=== PATIENT | male | born 1950 | race Caucasian/White ===

== ENCOUNTER 2016-07-20 09:56 | Emergency (ER) | payer MEDICARE, OTHER ==
[2016-07-20] MEDS ORDERED: Cephalexin CAP* 500 MG PO ONE (11:05)
[2016-07-20] MEDS ORDERED: Ibuprofen TAB* 400 MG PO ONE (11:05)
--- NOTE | 2016-07-20 11:25 | ED ---
Upper Extremity Pain - HPI Summary HPI Summary: Patient presents with right hand pain, redness and swelling that began approximately a week ago, but became worse yesterday. He can not form a full fist, but he is able to move all digits and the wrist, but are becoming more uncomfortable. He denies known trauma or bite, does not have a fever or feel ill otherwise. - History of Current Complaint Chief Complaint: EDExtremityUpper Stated Complaint: RT HAND SWELLING Time Seen by Provider: 07/20/16 10:14 Hx Obtained From: Patient Mechanism Of Injury: Unknown Onset/Duration: Started Days Ago, Atraumatic, Worse Since - yesterday Timing: Constant Severity Initially: Mild Severity Currently: Moderate Pain Location: Hand - right Character: Dull, Stiffness Aggravating Factor(s): Movement Alleviating Factor(s): Elevation, OTC Meds Associated Signs & Symptoms: Positive: Swelling, Redness Related History: Dominant Hand Right - Allergies/Home Medications Allergies/Adverse Reactions: Allergies Allergy/AdvReac Type Severity Reaction Status Date / Time No Known Allergies Allergy Verified 07/20/15 12:48 PMH/Surg Hx/FS Hx/Imm Hx Cardiovascular History: Reports: Hx Hypertension Musculoskeletal History: Reports: Other Musculoskeletal History - morbid obesity Infectious Disease History: No Infectious Disease History: Denies: Traveled Outside the [place] in Last 30 Days - Family History Known Family History: Positive: Cardiac Disease, Hypertension - Social History Occupation: Unemployed Lives: With Family Alcohol Use: Occasionally Substance Use Type: Reports: Prescribed Smoking Status (MU): Never Smoked Tobacco Review of Systems Negative: Fever, Chills Positive: Decreased ROM, Edema - erythema dorsum of right hand. Negative: Myalgia Negative: Bruising Negative: Weakness, Paresthesia, Numbness All Other Systems Reviewed And Are Negative: Yes Physical Exam Triage Information Reviewed: Yes Vital Signs On Initial Exam: Initial Vitals Temp Pulse Resp BP Pulse Ox 98.1 F 93 20 108/77 95 07/20/16 10:13 07/20/16 10:13 07/20/16 10:13 07/20/16 10:13 07/20/16 10:13 Vital Signs Reviewed: Yes Appearance: Positive: Well-Appearing, Pain Distress, Obese Skin: Positive: Warm, Skin Color Reflects Adequate Perfusion, Dry, Tender, Soft , Erythema @ - dorsum of right hand to the wrist Head/Face: Positive: Normal Head/Face Inspection Eyes: Positive: EOMI, YESSICA, Conjunctiva Clear ENT: Positive: Hearing grossly normal Respiratory/Lung Sounds: Positive: Breath Sounds Present Cardiovascular: Positive: RRR Musculoskeletal: Positive: Limited @ - pain with movement of the digits and with flex/ext of the right wrist, Pain @ - TTP globally over right hand and wrist to the mid forearm, Edema Right - hand Neurological: Positive: Sensory/Motor Intact, Alert, Oriented to Person Place, Time, NV Bundle Intact Distally Psychiatric: Positive: Affect/Mood Appropriate AVPU Assessment: Alert Diagnostics - Vital Signs Vital Signs Temp Pulse Resp BP Pulse Ox 07/20/16 10:13 98.1 F 93 20 108/77 95 - Laboratory Result Diagrams: 07/20/16 11:42 07/20/16 11:42 Lab Statement: Any lab studies that have been ordered have been reviewed, and results considered in the medical decision making process. Course/Dx - Course Course Of Treatment: Patient take diuretics and is followed by Dr. Santiago. He has not taken his daily potassium for the last two days since he hasn't picked up his refill prescription. He will be given a dose today and is encouraged to resume his daily potassium. - Diagnoses Differential Diagnosis/HQI/PQRI: Positive: Arthritis, Bursitis, Contusion, Hematoma, Septic Arthritis, Strain, Sprain Provider Diagnoses: Cellulitis, Hypokalemia Discharge - Discharge Plan Condition: Stable Disposition: HOME Prescriptions: Cephalexin CAP* [Keflex CAP*] 500 mg PO QID #39 cap Patient Education Materials: Cellulitis (ED), Hypokalemia (ED) Referrals: Estrada Santiago MD [Primary Care Provider] - Additional Instructions: Please resume your potassium regimen, and begin taking your antibiotics. Take the antibiotic until they are completely gone. Elevate your hand above your heart and take ibuprofen consistently for the next 3-5 days to decrease swelling and pain. You can take 600mg three times daily with meals. Follow-up with your PCP in 2-3 days for evaluation to ensure you are improving. Return to the emergency department if your symptoms worsen.
[2016-07-20 11:51] LABS: Hematocrit 56 % (42-52); Hemoglobin 18.2 g/dl (14.0-18.0); Mean Corpuscular HGB Conc 32 g/dl (31-36); Mean Corpuscular Hemoglobin 32 pg (27-31); Mean Corpuscular Volume 97 fL (80-94); Mean Platelet Volume 9 um3 (7.4-10.4); Red Cell Distribution Width 18 % (10.5-15); White Blood Count 11.5 10^3/ul (3.5-10.8)
[2016-07-20 12:07] LABS: Albumin 3.6 g/dL (3.2-5.2); BUN/Creatinine Ratio 26.9 (8-20); C Reactive Protein 62.85 mg/L (< 5.00); Calcium 9.8 mg/dL (8.6-10.3); EGFR African American 68.8 (>60); EGFR Non-African American 53.5 (>60); Globulin 4.3 g/dL (2-4); Potassium 2.8 mmol/L (3.5-5.0); Total Bilirubin 1.3 mg/dL (0.2-1.0); Total Protein 7.9 g/dL (6.4-8.9)
[2016-07-20] MEDS ORDERED: Potassium Chlor TAB* 20 MEQ TAB.ER PO ONE ×2 (12:20→12:22)
[2016-07-20 12:57] VITALS: BP 119/77
== END 2016-07-20 12:57 | disposition home or self-care (01) ==
LOC: ED 09:56
DX: L03.113 Cellulitis of right upper limb (principal); E87.6 Hypokalemia; I10 Essential (primary) hypertension; E66.01 Morbid (severe) obesity due to excess calories; Z68.43 Body mass index [BMI] 50.0-59.9, adult
CPT/HCPCS: 36415; 80053; 85025; 86140; 99283; A9270-GY

== ENCOUNTER 2016-07-24 09:55 | Emergency (ER) | payer MEDICARE, OTHER ==
[2016-07-24] MEDS ORDERED: Ketorolac INJ* 30 MG/ML 1 ML VIAL IV ONE (12:23)
[2016-07-24] MEDS ORDERED: HYDROmorphone INJ* 1 MG/ML CARPUJECT SYRINGE IV ONE (12:23)
[2016-07-24 12:47] LABS: Hematocrit 54 % (42-52); Hemoglobin 17.6 g/dl (14.0-18.0); Mean Corpuscular HGB Conc 32 g/dl (31-36); Mean Corpuscular Hemoglobin 32 pg (27-31); Mean Corpuscular Volume 98 fL (80-94); Mean Platelet Volume 9 um3 (7.4-10.4); Red Blood Count 5.56 10^6/ul (4.0-5.4); Red Cell Distribution Width 18 % (10.5-15); White Blood Count 11.2 10^3/ul (3.5-10.8)
[2016-07-24 12:59] LABS: Albumin 3.7 g/dL (3.2-5.2); BUN/Creatinine Ratio 26.6 (8-20); C Reactive Protein 36.76 mg/L (< 5.00); Calcium 9.9 mg/dL (8.6-10.3); EGFR African American 72.5 (>60); EGFR Non-African American 56.4 (>60); Globulin 4.3 g/dL (2-4); Total Bilirubin 1.2 mg/dL (0.2-1.0); Uric Acid 10.7 mg/dL (4.4-7.6)
--- NOTE | 2016-07-24 13:00 | RAD ---
HISTORY: Pain and swelling of right wrist COMPARISONS: None VIEWS: 3, Frontal, lateral, and oblique views of the right wrist FINDINGS: BONE DENSITY: Normal. BONES: There is no displaced fracture. JOINTS: There is no arthropathy. ALIGNMENT: There is no dislocation. SOFT TISSUES: There is circumferential soft tissue swelling. OTHER FINDINGS: None. IMPRESSION: SOFT TISSUE SWELLING. NO ACUTE OSSEOUS INJURY. IF SYMPTOMS PERSIST, RECOMMEND REPEAT IMAGING.
--- NOTE | 2016-07-24 13:00 | RAD ---
HISTORY: Pain and swelling of right hand COMPARISONS: None VIEWS: 3, Frontal, lateral, and oblique views of the right hand FINDINGS: BONE DENSITY: Normal. BONES: There is no displaced fracture. JOINTS: There is no arthropathy. ALIGNMENT: There is no dislocation. SOFT TISSUES: There is soft tissue swelling predominantly along the ulnar aspect of the right hand, and of the wrist OTHER FINDINGS: None. IMPRESSION: SOFT TISSUE SWELLING. NO ACUTE OSSEOUS INJURY. IF SYMPTOMS PERSIST, RECOMMEND REPEAT IMAGING. Soft tissue swelling
[2016-07-24] MEDS ORDERED: Ondansetron INJ* 2 MG/ML VIAL IV ONE (13:14)
[2016-07-24] MEDS ORDERED: Ondansetron INJ* 2 MG/ML VIAL ONE (13:16)
[2016-07-24 13:37] LABS: Erythrocyte Sed Rate 35 mm/Hr (0-40)
[2016-07-24 15:41] VITALS: BP 106/76
--- NOTE | 2016-07-24 17:03 | ED ---
Bozena Trujillo Matthew, scribed for Minor Jiménez MD on 07/24/16 at 1214 . Upper Extremity Pain - HPI Summary HPI Summary: A 66 y/o male presents to the ED with gradually worsening right wrist pain since 4 days ago. The pain is rated 10/10 in severity and described as shooting. The pain initially started in the knuckle of the 2nd finger one week ago, and moved into the fingers, which prevented him from bending his finger. The pain is now in the wrist and he's able to move his fingers again. He was started on Abx 4 days ago without improvement. 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 No Hx of gout. - History of Current Complaint Chief Complaint: EDExtremityUpper Stated Complaint: RT HAND SWELLING/PAIN IN WRIST Time Seen by Provider: 07/24/16 11:51 Hx Obtained From: Patient Mechanism Of Injury: Unknown Onset/Duration: Started Days Ago, Atraumatic, Still Present Timing: Constant Severity Initially: Moderate Severity Currently: Moderate Pain Location: Wrist - RT Aggravating Factor(s): Extension, Twisting Alleviating Factor(s): Nothing Associated Signs & Symptoms: Positive: Swelling, Other - Warmth. Negative: Fever - Allergies/Home Medications Allergies/Adverse Reactions: Allergies Allergy/AdvReac Type Severity Reaction Status Date / Time No Known Allergies Allergy Verified 07/24/16 09:58 PMH/Surg Hx/FS Hx/Imm Hx Cardiovascular History: Reports: Hx Hypertension Musculoskeletal History: Reports: Other Musculoskeletal History - morbid obesity Infectious Disease History: No Infectious Disease History: Denies: Traveled Outside the [place] in Last 30 Days - Family History Known Family History: Positive: Cardiac Disease, Hypertension - Social History Alcohol Use: Occasionally Substance Use Type: Reports: Prescribed Smoking Status (MU): Never Smoked Tobacco Review of Systems Constitutional: Negative Negative: Fever, Chills Eyes: Negative ENT: Negative Cardiovascular: Negative Respiratory: Negative Gastrointestinal: Negative Genitourinary: Negative Positive: Myalgia - RT wrist pain w/ warmth, Edema - RT wrist Skin: Negative Positive: Headache Psychological: Normal All Other Systems Reviewed And Are Negative: Yes Physical Exam - Summary Physical Exam Summary: The patient is morbidly obese. The skin is warm and dry and skin color reflects adequate perfusion. HEENT: The head is normocephalic and atraumatic. The pupils are equal and reactive. The conjunctivae are clear and without drainage. Mouth reveals moist mucous membranes and the throat is without erythema and exudate. The external ears are intact. Neck is supple with full range of motion and non-tender. There are no carotid bruits. There is no neck vein distension. Respiratory: Chest is non-tender. Lungs are clear to auscultation and breath sounds are symmetrical and equal. Cardiovascular: Hear is regular rate and rhythm. There is no murmur or rub auscultated. There is no peripheral edema and pulses are symmetrical and equal. Abdomen: The abdomen is soft and non-tender. There are normal bowel sounds heard in all four quadrants and there is no organomegaly palpated. Musculoskeletal: There is no back pain noted. There is good capillary refill. There is no peripheral edema or calf tenderness elicited. RUE shows no elbow or shoulder tenderness, no lymphangitis, or no epitrochlear nodes noted. There is swelling of the dorsum of the hand and wrist. No erythema appreciated, Full ROM ; however, there is pain with extension, lateral and ulnar deviation of the wrist, and he's unable to pronate and supinate w/o pain. He has no pain with flexion. Neurological: Patient is alert and oriented to person, place and time. The patient has symmetrical motor strength in all four extremities. Cranial nerves are grossly intact. Deep tendon reflexes are symmetrical and equal in all four extremities. Psychiatric: The patient has an appropriate affect and does not exhibit any anxiety or depression. Triage Information Reviewed: Yes Vital Signs On Initial Exam: Initial Vitals Temp Pulse Resp BP Pulse Ox 96.2 F 99 22 154/89 91 07/24/16 09:58 07/24/16 09:58 07/24/16 09:58 07/24/16 09:58 07/24/16 09:58 Vital Signs Reviewed: Yes Diagnostics - Vital Signs Vital Signs Temp Pulse Resp BP Pulse Ox 07/24/16 09:58 96.2 F 99 22 154/89 91 - Laboratory Lab Results: Lab Results 07/24/16 07/24/16 07/24/16 Range/Units 12:30 12:30 12:30 WBC 11.2 H (3.5-10.8) 10^3/ul RBC 5.56 H (4.0-5.4) 10^6/ul Hgb 17.6 (14.0-18.0) g/dl Hct 54 H (42-52) % MCV 98 H (80-94) fL MCH 32 H (27-31) pg MCHC 32 (31-36) g/dl RDW 18 H (10.5-15) % Plt Count 176 (150-450) 10^3/ul MPV 9 (7.4-10.4) um3 Neut % (Auto) 77.8 (38-83) % Lymph % (Auto) 13.0 L (25-47) % Polk % (Auto) 6.6 (1-9) % Eos % (Auto) 1.3 (0-6) % Baso % (Auto) 1.3 (0-2) % Absolute Neuts (auto) 8.7 H (1.5-7.7) 10^3/ul Absolute Lymphs (auto) 1.5 (1.0-4.8) 10^3/ul Absolute Monos (auto) 0.7 (0-0.8) 10^3/ul Absolute Eos (auto) 0.1 (0-0.6) 10^3/ul Absolute Basos (auto) 0.1 (0-0.2) 10^3/ul Absolute Nucleated RBC 0.02 10^3/ul Nucleated RBC % 0.1 ESR 35 (0-40) mm/Hr Sodium 138 (133-145) mmol/L Potassium 5.0 (3.5-5.0) mmol/L Chloride 103 (101-111) mmol/L Carbon Dioxide 28 (22-32) mmol/L Anion Gap 7 (2-11) mmol/L BUN 34 H (6-24) mg/dL Creatinine 1.28 H (0.67-1.17) mg/dL Est GFR ( Amer) 72.5 (>60) Est GFR (Non-Af Amer) 56.4 (>60) BUN/Creatinine Ratio 26.6 H (8-20) Glucose 89 (70-100) mg/dL Lactic Acid 1.8 (0.5-2.0) mmol/L Uric Acid 10.7 H (4.4-7.6) mg/dL Calcium 9.9 (8.6-10.3) mg/dL Total Bilirubin 1.20 H (0.2-1.0) mg/dL AST 26 (13-39) U/L ALT 13 (7-52) U/L Alkaline Phosphatase 87 (34-104) U/L C-Reactive Protein 36.76 H (< 5.00) mg/L Total Protein 8.0 (6.4-8.9) g/dL Albumin 3.7 (3.2-5.2) g/dL Globulin 4.3 H (2-4) g/dL Albumin/Globulin Ratio 0.9 L (1-3) Result Diagrams: 07/24/16 12:30 07/24/16 12:30 Lab Statement: Any lab studies that have been ordered have been reviewed, and results considered in the medical decision making process. - Radiology RT Wrist Xray Interpretation: No Acute Changes - IMPRESSION: SOFT TISSUE SWELLING. NO ACUTE OSSEOUS INJURY. IF SYMPTOMS PERSIST, RECOMMEND REPEAT IMAGING. Radiology Interpretation Completed By: Radiologist RT Hand Xray Interpretation: No Acute Changes - IMPRESSION: SOFT TISSUE SWELLING. NO ACUTE OSSEOUS INJURY. IF SYMPTOMS PERSIST, RECOMMEND REPEAT IMAGING. Soft tissue swelling Radiology Interpretation Completed By: Radiologist - EKG 10:20 Cardiac Rate: NL - 97 bpm EKG Rhythm: Sinus Rhythm EKG Interpretation: RBBB Course/Dx - Course Assessment/Plan: A 66 y/o male presents to the ED with gradually worsening right wrist pain since 4 days ago. Labs were reviewed and compared to previous visit and had improved. Uric acid was elevated. Wrist XR shows soft tissue swelling. no acute osseous injury. Hand XR shows soft tissue swelling. no acute osseous injury. EKG shows NSR at 97 bpm with a RBBB. In the ED course, the patient was given Dilaudid, Toradol, and Zofran. He will be discharged home on colchicine and percocet. He will also be given a preformed splint to wear home. He is to follow-up with his PCP as well as Dr. Wolf. The pt. was advised to avoid NSAID's secondary to his elevated Bun and creatinine. He was started on colchicine. - Diagnoses Differential Diagnosis/HQI/PQRI: Positive: Arthritis, Septic Arthritis, Other - cellulitis, fracture, tenosynovitis, Provider Diagnoses: Gouty arthritis, Renal insufficiency, mild Discharge - Discharge Plan Condition: Stable Disposition: HOME Prescriptions: Colchicine* [Colcrys*] 0.6 mg PO DAILY #14 tab oxyCODONE/Acetamin 5/325 MG* [Percocet 5/325 TAB*] 1 tab PO Q6H PRN #20 tab MDD 4 PRN Reason: pain Patient Education Materials: Oxycodone/Acetaminophen (By mouth), Colchicine ( By mouth), Gout (ED) Referrals: Estrada Santiago MD [Primary Care Provider] - 2 Days Dread Wolf MD [Medical Doctor] - Additional Instructions: Please follow-up with your primary care physician and Dr. Wolf in two days. The documentation as recorded by the Bozena dockery Matthew accurately reflects the service I personally performed and the decisions made by , Minor Jiménez MD.
== END 2016-07-24 15:39 | disposition home or self-care (01) ==
LOC: ED 09:55
DX: M25.531 Pain in right wrist (principal); R51 Headache; M10.9 Gout, unspecified
CPT/HCPCS: 36415; 80053; 83605; 84550; 85025; 85652; 86140; 87040; 93005; 99283; J1170; J1885; J2405

== ENCOUNTER 2016-10-04 15:25 | Observation (INO) | payer MEDICARE, OTHER ==
--- NOTE | 2016-10-04 16:38 | RAD ---
Indication: Abdominal discomfort and constipation. Reports blockage for 3 days. Denies previous abdominal surgery. Comparison: October 08, 2004 CT. Technique: Supine and upright views of the abdomen. Report: Obesity limits image quality. No dilated small or large bowel loops evident. Negative for significant air-fluid levels. Negative for free air. Negative for suspicious calcifications or mass effect. Mild prominence of the basilar interstitial markings. Median sternotomy wires and prosthetic mitral valve. IMPRESSION: No evidence for bowel obstruction. No evidence for free air.
[2016-10-04 16:42] LABS: Hematocrit 54 % (42-52); Mean Corpuscular HGB Conc 33 g/dl (31-36); Mean Corpuscular Hemoglobin 31 pg (27-31); Mean Corpuscular Volume 94 fL (80-94); Mean Platelet Volume 9 um3 (7.4-10.4); Red Blood Count 5.73 10^6/ul (4.0-5.4); Red Cell Distribution Width 18 % (10.5-15); White Blood Count 8.5 10^3/ul (3.5-10.8)
[2016-10-04] MEDS ORDERED: Sodium Phosphate ADULT ENEMA* 118 ml bottle PR ONE (16:56)
[2016-10-04] MEDS ORDERED: Polyethylene Glycol 3350 BTL* 238 GM BTL PO ONE (16:56)
[2016-10-04] MEDS ORDERED: Magnesium CITRATE* 300 ML BTL PO ONE (16:56)
[2016-10-04] MEDS ORDERED: LACTULOSE* 30 ML UDC PO ONE (16:56)
[2016-10-04 16:57] LABS: Albumin 3.8 g/dL (3.2-5.2); BUN/Creatinine Ratio 33.7 (8-20); C Reactive Protein 25.28 mg/L (< 5.00); Calcium 10.1 mg/dL (8.6-10.3); EGFR African American 42.8 (>60); EGFR Non-African American 33.3 (>60); Globulin 4.7 g/dL (2-4); Total Bilirubin 1.9 mg/dL (0.2-1.0); Total Protein 8.5 g/dL (6.4-8.9)
[2016-10-04 16:59] LABS: Potassium 2.6 mmol/L (3.5-5.0)
[2016-10-04] MEDS ORDERED: Potassium Chlor TAB* 20 MEQ TAB.ER PO ONE (17:33)
[2016-10-04] MEDS ORDERED: NS 0.9% 1000 ML* 1,000 ML IV ONE (18:16)
[2016-10-04] MEDS: KCL 10 MEQ/50 ML IVPREMIX* 10 MEQ/50 ML BAG IV SCH ×3 (19:45→20:28)
[2016-10-04] MEDS ORDERED: Senna TAB PO PRN (20:00)
[2016-10-04] MEDS ORDERED: Docusate CAP* 100 MG PO PRN (20:00)
[2016-10-04] MEDS ORDERED: Polyethylene Glycol 3350* 17 GM PACKET PO PRN (20:00)
[2016-10-04] MEDS ORDERED: Sodium Phosphate ADULT ENEMA* 118 ml bottle PR PRN (20:01)
[2016-10-04] MEDS ORDERED: Ondansetron INJ* 2 MG/ML VIAL IV PRN (20:01)
[2016-10-04] MEDS: NS 0.9% w/ 40 Meq KCL 1000 ML* 1,000 ML IV SCH (21:30)
[2016-10-04] MEDS: Heparin VIAL(*) 5000 UNITS/ML VIAL (FIVE THOUSAND) SUBCUT SCH (21:59)
[2016-10-04] MEDS ORDERED: Acetaminophen TAB* 325 MG PO PRN (22:21)
--- NOTE | 2016-10-05 03:05 | HP ---
HISTORY AND PHYSICAL: DATE OF ADMISSION: 10/04/16 CHIEF COMPLAINT: Constipation. HISTORY OF PRESENT ILLNESS: The patient is a 66-year-old gentleman who presented to [facility] with a chief complaint of 3 days of constipation. He has not been able to keep anything down. He has tried various things at home to make himself go to the bathroom. He has taken docusate and a glycerine suppository and nothing has worked. He said every time he eats, he gets more bloated and feels very uncomfortable. He does not have actually any belly pain and no nausea or vomiting. In the ED, the patient presented and he does not have a bowel obstruction, but his creatinine was elevated showing acute renal failure and he was hypokalemic. He was unable to take his potassium replacement. According to records, he has a history of CHF with an EF of 25% in 2005; however, he had a subsequent mitral valve repair and states it is much better at this time, morbid obesity, hypertension, peripheral edema, and also wounds requiring wound care visits. CURRENT MEDICATIONS: 1. Furosemide 80 mg daily. 2. Metolazone 2.5 mg daily. 3. Hydrocodone/acetaminophen 1 tab every 6 hours as needed. 4. Uloric, unknown dose daily. 5. Aspirin 81 mg daily. FAMILY HISTORY: Mother in her 70s of emphysema and lung cancer. Father at 74 of lung cancer. SOCIAL HISTORY: No tobacco, alcohol, or recreational drug use. He teaches chemistry at . He is not . He has no children. Tarsha Peace is his cousin and healthcare proxy. REVIEW OF SYSTEMS: A 14-point review of systems was completed with the patient. All pertinent positives and negatives are in the history of present illness, otherwise it is negative. PHYSICAL EXAMINATION GENERAL: He is an obese gentleman, lying in bed, in no acute distress. VITAL SIGNS: Temperature 97.8 degrees, heart rate 94 beats per minute, respirations 16 breaths per minute, pulse ox 91% on room air, blood pressure 115 /76. HEENT: Normocephalic, atraumatic. Pupils equal, round, reactive to light. Moist mucous membranes. NECK: Supple. No JVD, bruits, palpable thyroid, or lymphadenopathy. CHEST: Clear to auscultation and percussion bilaterally. CARDIOVASCULAR: S1, S2 appreciated. ABDOMEN: Morbidly obese. Positive bowel sounds in all 4 quadrants. Soft, nontender, nondistended. EXTREMITIES: No cyanosis or clubbing. He has got bilateral edema with Liborio wraps around them. He says he is supposed to have his wraps changed tomorrow. NEURO: Alert and oriented x3. He moves all extremities. SKIN: No rashes. The only abnormality is over his lower extremities. LABORATORY DATA/DIAGNOSTIC STUDIES: White count 8.5, hemoglobin 18.0, hematocrit 54, platelets 211. Sodium 136, potassium 2.6, chloride 89, CO2 38, BUN 68, creatinine 2.02, glucose is 101. Total bili is 1.90. Abdominal x-ray shows no evidence of bowel obstruction, no evidence of free air. EKG showed normal sinus rhythm at 86 beats per minute, right bundle-branch block pattern, no acute ST-T wave changes, LVH. ASSESSMENT AND PLAN: 1. Constipation. We will give Fleet enema to the patient, add MiraLAX, docusate, and senna. Anticipate this should relieve the patient. Hopefully, he will not need to be disimpacted. 2. Acute renal failure/dehydration. We will hydrate the patient with normal saline with 40 mEq of KCl at 125 cc/hour. We will monitor closely because he does take Lasix, but insists that he has no heart failure anymore. 3. Hypokalemia. Replete potassium as noted above. Check again in a.m. 4. FEN, regular diet. 5. DVT prophylaxis, heparin subcu. 6. The patient is a full code. TIME SPENT: Over 75 minutes were spent on this H and P, more than 40 minutes of which were spent in direct [id number] contact with the patient in evaluation, physical exam, counseling, and coordination of care. CC: Estrada Santiago MD* [id number]/[facility] #: [id number] ERON
[2016-10-05 05:05] LABS: Urine Bacteria Absent (Absent)
[2016-10-05 05:10] LABS: Urine Bilirubin Negative (Negative); Urine Glucose Negative (Negative); Urine Nitrite Negative (Negative)
[2016-10-05] MEDS: Heparin VIAL(*) 5000 UNITS/ML VIAL (FIVE THOUSAND) SUBCUT SCH (05:29)
[2016-10-05 05:50] LABS: BUN/Creatinine Ratio 35.1 (8-20); Calcium 9.5 mg/dL (8.6-10.3); EGFR African American 44.9 (>60); EGFR Non-African American 34.9 (>60); Potassium 3.3 mmol/L (3.5-5.0)
[2016-10-05] MEDS: NS 0.9% w/ 40 Meq KCL 1000 ML* 1,000 ML IV SCH (07:20)
--- NOTE | 2016-10-05 07:31 | ED ---
Wade Trujillo Billy, scribed for Nabor Bahena MD on 10/04/16 at 1617 . GI/ HPI - HPI Summary HPI Summary: Patient is a 66 year-old male coming to [facility] for evaluation and treatment of constipation for the last several days. Patient takes 1x Vicodin for chronic pain management. He states that he can "feel a blockage right at the end." He has taken stool softeners, and while he can move his bowels after doing so, he continues to feel the blockage. Denies any similar previous problems. Denies any abdominal pain. - History of Current Complaint Chief Complaint: EDNauseaVomitDiarrh Time Seen by Provider: 10/04/16 15:41 Stated Complaint: CONSTIPATION Hx Obtained From: Patient Onset/Duration: Started Days Ago Timing: Constant Severity: Moderate Current Severity: Moderate Associated Signs and Symptoms: Positive: Constipation - Allergy/Home Medications Allergies/Adverse Reactions: Allergies Allergy/AdvReac Type Severity Reaction Status Date / Time No Known Allergies Allergy Verified 10/04/16 20:05 PMH/Surg Hx/FS Hx/Imm Hx Cardiovascular History: Reports: Hx Congestive Heart Failure, Hx Hypertension Musculoskeletal History: Reports: Other Musculoskeletal History - morbid obesity Infectious Disease History: Denies: Traveled Outside the [place] in Last 30 Days - Family History Known Family History: Positive: Cardiac Disease, Hypertension - Social History Alcohol Use: Occasionally Substance Use Type: Reports: Prescribed Smoking Status (MU): Never Smoked Tobacco Review of Systems Positive: Other - constipation. Negative: Abdominal Pain Positive: Other - wounds on legs bilaterally All Other Systems Reviewed And Are Negative: Yes Physical Exam - Summary Physical Exam Summary: VITAL SIGNS: Reviewed. GENERAL: Patient is a well developed and nourished obese male who is lying comfortable in the stretcher. Patient is not in any acute respiratory distress. HEAD AND FACE: Normocephalic EYES: PERRLA, EOMI x 2. EARS: Hearing grossly intact. MOUTH: Oropharynx within normal limits. NECK: Supple, trachea is midline, no adenopathy, no JVD, no carotid bruit. CHEST: Symmetric, no tenderness at palpation LUNGS: Clear to auscultation bilaterally. No wheezing or crackles. CVS: Regular rate and rhythm, S1 and S2 present, no murmurs or gallops appreciated. ABDOMEN: Soft, non-tender, and obese at baseline. Bowel sounds are normal. No abdominal abnormal pulsations. EXTREMITIES: Full ROM in all major joints, no cyanosis or clubbing. There is bilateral lower edema with positive wounds, which are taken care of at the wound clinic. NEURO: Alert and oriented x 3. No acute neurological deficits. Speech is normal and follows commands. SKIN: Dry and warm Triage Information Reviewed: Yes Vital Signs On Initial Exam: Initial Vitals Temp Pulse Resp BP Pulse Ox 96.4 F 99 16 127/63 100 10/04/16 15:29 10/04/16 15:29 10/04/16 15:29 10/04/16 15:29 10/04/16 15:29 Vital Signs Reviewed: Yes Diagnostics - Vital Signs Vital Signs Temp Pulse Resp BP Pulse Ox 10/04/16 15:29 96.4 F 99 16 127/63 100 - Laboratory Lab Results: Lab Results 10/04/16 10/04/16 Range/Units 16:25 16:25 WBC 8.5 (3.5-10.8) 10^3/ul RBC 5.73 H (4.0-5.4) 10^6/ul Hgb 18.0 (14.0-18.0) g/dl Hct 54 H (42-52) % MCV 94 (80-94) fL MCH 31 (27-31) pg MCHC 33 (31-36) g/dl RDW 18 H (10.5-15) % Plt Count 211 (150-450) 10^3/ul MPV 9 (7.4-10.4) um3 Neut % (Auto) 73.5 (38-83) % Lymph % (Auto) 15.1 L (25-47) % [place] % (Auto) 9.7 H (1-9) % Eos % (Auto) 1.4 (0-6) % Baso % (Auto) 0.3 (0-2) % Absolute Neuts (auto) 6.2 (1.5-7.7) 10^3/ul Absolute Lymphs (auto) 1.3 (1.0-4.8) 10^3/ul Absolute Monos (auto) 0.8 (0-0.8) 10^3/ul Absolute Eos (auto) 0.1 (0-0.6) 10^3/ul Absolute Basos (auto) 0 (0-0.2) 10^3/ul Absolute Nucleated RBC 0.01 10^3/ul Nucleated RBC % 0.1 Sodium 136 (133-145) mmol/L Potassium 2.6 L* (3.5-5.0) mmol/L Chloride 89 L (101-111) mmol/L Carbon Dioxide 38 H (22-32) mmol/L Anion Gap 9 (2-11) mmol/L BUN 68 H (6-24) mg/dL Creatinine 2.02 H (0.67-1.17) mg/dL Est GFR ( Amer) 42.8 (>60) Est GFR (Non-Af Amer) 33.3 (>60) BUN/Creatinine Ratio 33.7 H (8-20) Glucose 101 H (70-100) mg/dL Calcium 10.1 (8.6-10.3) mg/dL Magnesium 2.0 (1.9-2.7) mg/dL Total Bilirubin 1.90 H (0.2-1.0) mg/dL AST 22 (13-39) U/L ALT 12 (7-52) U/L Alkaline Phosphatase 87 (34-104) U/L C-Reactive Protein 25.28 H (< 5.00) mg/L Total Protein 8.5 (6.4-8.9) g/dL Albumin 3.8 (3.2-5.2) g/dL Globulin 4.7 H (2-4) g/dL Albumin/Globulin Ratio 0.8 L (1-3) Result Diagrams: 10/04/16 16:25 10/05/16 04:55 Lab Statement: Any lab studies that have been ordered have been reviewed, and results considered in the medical decision making process. - Radiology abd xray Radiology Interpretation Completed By: Radiologist - No evidence for bowel obstruction. No evidence for free air. - EKG 1791 EKG Interpretation: NSR 86 bpm, atrial premature complexes EKG Comparison: No Significant Change - Compared to 07/24/16 GIGU Course/Dx - Course Assessment/Plan: Patient is a 66 year-old male coming to [facility] for evaluation and treatment of constipation for the last several days. Patient takes 1x Vicodin for chronic pain management. He states that he can "feel a blockage right at the end." He has taken stool softeners, and while he can move his bowels after doing so, he continues to feel the blockage. Denies any similar previous problems. Denies any abdominal pain. Bloodwork shows potassium 2.6, chloride 89, CO2 38, BUN/creatinine is 33.7 which is acute on chronic renal failure. Glucose of 101 and CRP of 25.28. In the ED course, patient was given IV fluids. Abd Xray shows no obstruction or free air. He declined rectal exam. Therefore patient was given lactulose, magnesium citrate, miralax, and fleet enema. He was also given potassium chloride IV and PO for hypokalemia. At this point, he is getting the IV potassium. Patient also has been hydrated for acute on chronic renal failure. At this time he is hemodynamically stable, A&Ox3. Patient care was discussed with Dr. Garcia, who accepted the patient for admission. Patient denied any CP, SOB or palpitations. EKG as above. - Diagnoses Differential Diagnoses - Male: Constipation - Obstruction Provider Diagnoses: Therapeutic opioid induced constipation, Hypokalemia, Dehydration, Acute on chronic renal failure - Physician Notifications Discussed Care Of Patient With: Dr. Garcia (hospitalist) @ 190: accepts admission. Discharge - Discharge Plan Condition: Stable Disposition: ADMITTED TO [facility] The documentation as recorded by the Wade dockery Billy accurately reflects the service I personally performed and the decisions made by me, Nabor Bahena MD.
[2016-10-05 08:32] VITALS: BP 99/68
[2016-10-05] MEDS ORDERED: Aspirin Low Dose CHEW TAB* 81 MG PO SCH (09:00)
--- NOTE | 2016-10-06 01:50 | DS ---
DISCHARGE SUMMARY: DATE OF ADMISSION: 10/04/16 DATE OF DISCHARGE: 10/05/16 PRIMARY CARE PROVIDER: Estrada Santiago MD DISCHARGING PROVIDER: CARROL Douglas SUPERVISING PHYSICIAN: Wes Le MD * (dictated by CARROL Douglas) PRIMARY DISCHARGE DIAGNOSES: 1. Severe constipation. 2. Hypokalemia. 3. [id number] renal insufficiency. SECONDARY DISCHARGE DIAGNOSES: 1. Chronic systolic heart failure with last EF estimated at approximately 25% without acute exacerbation. 2. Chronic lower extremity edema under the care of the [facility]. HOSPITAL IMAGING: X-ray of the abdomen, 10/04/16 shows no evidence of bowel obstruction or free air. HOSPITAL COURSE: This is a 66-year-old gentleman with a history of chronic systolic heart failure with chronic lower extremity edema who presented to the emergency department with complaints of constipation for the last 3 days. The patient was quite nauseated and severely bloated with some occasional vomiting. He had not had bowel movement in several days and had been taking multiple laxatives at home without improvement. Abdominal x-ray at the time of admission was negative for obstruction. CBC was unremarkable. Chemistry panel demonstrated hypokalemia with potassium of 2.6 and an exacerbation of his chronic kidney disease, which showed a BUN of 68 and a creatinine of 2.02 and an estimated GFR of 33. It appears that his baseline GFR is closer to the mid 50s. The patient is on a significant amount of diuretics and generally takes 50 mEq of potassium daily, but states that he was unable to take the potassium due to his acute complaints for the last several days. The patient was subsequently admitted. He received a Fleet Enema and received IV fluids with potassium replacement. The Fleet Enema returned significant amount of liquid stool. The patient noted resolution in his feelings of bloating and he was able to tolerate his breakfast without acute complaints. He still feels that he has some hard stool near the rectum that has not moved yet. His potassium improved to 3.3 at the time of admission, creatinine fell to 1.94 with an estimated GFR of 35 at the time of discharge. The patient feels well enough to return home and has suppositories and additional laxatives available at home. DISPOSITION: The patient is being discharged to home with instructions to use an additional suppository today and tomorrow as necessary and maintain a daily regimen of stool softener as he is on diuretics and opioids increasing his risk for chronic constipation. He is instructed to repeat basic metabolic panel early next week and follow up with his primary care provide to ensure that his hypokalemia has resolved completely and his renal function has returned to baseline. Otherwise, recommend resuming home medications. CARROL DOUGLAS CC: Estrada Santiago MD* [id number]/[facility] #: [id number] MTDD
== END 2016-10-05 14:04 | disposition home or self-care (01) ==
LOC: ED 15:25 → MEDTELE 20:01
PROVIDERS: ADMIT Internal Medicine; ATTEND Internal Medicine
DX: K59.00 Constipation, unspecified (principal); N17.9 Acute kidney failure, unspecified; N18.9 Chronic kidney disease, unspecified; E87.6 Hypokalemia; E86.0 Dehydration; I49.1 Atrial premature depolarization; Z79.899 Other long term (current) drug therapy
CPT/HCPCS: 36415; 74020; 80048; 80053; 81003; 81015; 83735; 85025; 86140; 87086; 93005; 96365; 99284; A9270-GY; G0378; J3480

== ENCOUNTER → 2017-08-13 09:27 | Emergency (ER) | payer MEDICARE, OTHER ==
--- NOTE | 2017-08-13 10:28 | RAD ---
HISTORY: Fall, head trauma COMPARISONS: None TECHNIQUE: Multiple contiguous axial CT scans were obtained of the head without intravenous contrast. FINDINGS: The study is limited by patient motion artifact. HEMORRHAGE/INFARCT: There is no hemorrhage or acute infarct. MASSES/SHIFT: There is no mass or shift. EXTRA-AXIAL SPACES: There are no extra-axial fluid collections. SULCI AND VENTRICLES: The sulci and ventricles are normal in size and position for the patient's stated age. CEREBRUM: There are no focal parenchymal abnormalities. BRAINSTEM: There are no focal parenchymal abnormalities. CEREBELLUM: There are no focal parenchymal abnormalities. VESSELS: There is calcification of the cavernous segments of the internal carotid arteries bilaterally. PARANASAL SINUSES: The paranasal sinuses are clear. ORBITS: The orbits are unremarkable. BONES AND SOFT TISSUE: No bone or soft tissue abnormalities are noted. OTHER: None IMPRESSION: LIMITED STUDY. NO ACUTE INTRACRANIAL PATHOLOGY.
--- NOTE | 2017-08-13 10:31 | RAD ---
HISTORY: Fall, facial trauma COMPARISONS: None TECHNIQUE: Multiple contiguous axial CT scans were obtained of the face without intravenous contrast, with coronal and sagittal multiplanar reformations. FINDINGS: The study is limited by patient motion artifact. BONES: There is a nondisplaced, slightly angulated fracture through the left nasal bone. The orbital rims are intact. The zygomatic arches are intact. The pterygoid plates are intact. Degenerative changes are noted of the cervical spine ORBITS: The globes are round. The optic nerves are symmetric. The extraocular musculature is normal. There is no post septal or intraconal inflammatory change. There is no retrobulbar hematoma. PARANASAL SINUSES: The paranasal sinuses are clear. BRAIN AND SOFT TISSUE: Unremarkable. OTHER: None. IMPRESSION: LEFT NASAL BONE FRACTURE
[2017-08-13 11:38] VITALS: BP 116/74
--- NOTE | 2017-08-13 16:41 | ED ---
Head Injury - HPI Summary HPI Summary: Patient is a 67-year-old male who presents to the ED after falling forward and hitting his face. He endorses pain over the anterior nose with a small 1.5 cm laceration. He denies any loss of consciousness. Denies any other pain or concerns at this time. He has never injured the nose before. Denies hitting his head otherwise and denies any blood thinners. He takes multiple medications and is seen at the wound clinic regularly. He is in no acute distress, pain is rated a 5 out of 10 constant and throbbing. Denies any memory loss, confusion, visual changes, or other neurologic deficits. - History Of Current Complaint Chief Complaint: EDFacialInjury Stated Complaint: FALL/FACIAL LACERATIONS Time Seen by Provider: 08/13/17 09:32 Hx Obtained From: Patient Mechanism Of Injury: Direct Blow Onset/Duration: Started Hours Ago Onset of Pain: Hours Severity Currently: Moderate Severity Initially: Moderate Pain Intensity: 5 Pain Scale Used: 0-10 Numeric Location of Head Injury: Frontal Location: Discrete At: - Anterior nose Alleviating Factor(s): Rest, Ice Associated Signs And Symptoms: Negative - Risk Factors SDH Risk Factor: Male - Allergies/Home Medications Allergies/Adverse Reactions: Allergies Allergy/AdvReac Type Severity Reaction Status Date / Time No Known Allergies Allergy Verified 10/04/16 20:05 PMH/Surg Hx/FS Hx/Imm Hx Previously Healthy: Yes Cardiovascular History: Reports: Hx Congestive Heart Failure, Hx Hypertension, Hx Peripheral Vascular Disease Musculoskeletal History: Reports: Hx Gout, Other Musculoskeletal History - morbid obesity Sensory History: Denies: Hx Contacts or Glasses, Hx Hearing Aid Opthamlomology History: Denies: Hx Contacts or Glasses - Surgical History Surgery Procedure, Year, and Place: heart - Immunization History Hx Pertussis Vaccination: No Immunizations Up to Date: Unable to Obtain/Confirm Infectious Disease History: No Infectious Disease History: Denies: Traveled Outside the [place] in Last 30 Days - Family History Known Family History: Positive: Cardiac Disease, Hypertension - Social History Occupation: Unemployed Lives: Alone Alcohol Use: Occasionally Hx Substance Use: Yes Substance Use Type: Reports: Prescribed Smoking Status (MU): Never Smoked Tobacco Review of Systems Constitutional: Negative Negative: Fever, Chills, Fatigue, Skin Diaphoresis Positive: Epistaxis - minimal Cardiovascular: Negative Respiratory: Negative Genitourinary: Negative Positive: no symptoms reported Positive: Arthralgia - nasal bridge pain Positive: Other - bruising to the anterior nasal bridge Psychological: Normal All Other Systems Reviewed And Are Negative: Yes Physical Exam Triage Information Reviewed: Yes Vital Signs On Initial Exam: Initial Vitals Temp Pulse Resp BP Pulse Ox 98.2 F 59 20 89/69 90 08/13/17 09:52 08/13/17 09:52 08/13/17 09:52 08/13/17 09:52 08/13/17 09:52 Vital Signs Reviewed: Yes Appearance: Positive: Well-Appearing, Well-Nourished Skin: Positive: Warm, Skin Color Reflects Adequate Perfusion, Other - Small 1.5 cm superficial laceration to the anterior bridge of the nose Head/Face: Positive: Other - Trauma. Negative: Normal Head/Face Inspection, Scalp Eyes: Positive: EOMI, YESSICA Neck: Positive: Supple, No Lymphadenopathy Respiratory/Lung Sounds: Positive: Clear to Auscultation, Breath Sounds Present Cardiovascular: Positive: RRR, Pulses are Symmetrical in both Upper and Lower Extremities Musculoskeletal: Positive: Pain @ - Anterior bridge of the nose Neurological: Positive: Sensory/Motor Intact, Alert, Oriented to Person Place, Time, Speech Normal Psychiatric: Positive: Normal, Affect/Mood Appropriate AVPU Assessment: Alert Diagnostics - Vital Signs Vital Signs Temp Pulse Resp BP Pulse Ox 08/13/17 11:37 98 F 86 20 116/74 98 08/13/17 09:52 98.2 F 59 20 89/69 90 - Laboratory Lab Statement: Any lab studies that have been ordered have been reviewed, and results considered in the medical decision making process. Head Injury Course/Dx Course Of Treatment: During the course of treatment, the patient is evaluated for facial pain after falling directly onto his nose to the ground after slipping on the ice. Denies hitting his head or blood thinners. Maxillofacial and CT brain obtained. CT brain within normal limits, maxillofacial shows a left nasal bone fracture. He will follow up with ENT for further evaluation. During the course, he begins to sat at 82%, states he is not short of breath, but normal for him is around 89-90. He also states he is breathing through his mouth due to the epistaxis. Epistaxis now controlled. Wound cleansed thoroughly and 2 sutures placed using 6-0 Prolene. Suture removal in 5 days. Patient tolerated well. - Diagnoses Differential Diagnosis/HQI/PQRI: Concussion With LOC, Concussion Without LOC, Contusion Provider Diagnoses: Laceration, Nasal bone fracture Discharge - Discharge Plan Condition: Stable Disposition: HOME Prescriptions: Amoxicillin/Clavulanate TAB* [Augmentin TAB 875*] 875 mg PO BID #10 tab Patient Education Materials: Amoxicillin/Clavulanate Potassium (By mouth), Laceration (ED) Referrals: Joao Loving MD [Medical Doctor] - Estrada Santiago MD [Primary Care Provider] - Additional Instructions: Sutures out in 5 days Please follow up with ENT Call today for an appointment If he begin to feel short of breath or have any worsening symptoms, return to the ED immediately Keep the bandage applied for one day then leave open to air Augmentin 5 days
== END | disposition home or self-care (01) ==
LOC: ED 09:27
DX: S02.2XXA Fracture of nasal bones, initial encounter for closed fracture (principal); S01.21XA Laceration without foreign body of nose, initial encounter; W19.XXXA Unspecified fall, initial encounter; Y92.9 Unspecified place or not applicable; I50.9 Heart failure, unspecified; I10 Essential (primary) hypertension; I73.9 Peripheral vascular disease, unspecified
CPT/HCPCS: 70450; 70486; 99282